=== PATIENT | male | born 1940 | race Caucasian/White ===

== ENCOUNTER 2023-03-14 11:22 | Emergency (ER) | payer MEDICARE ==
[~2023-03-14] VITALS: Ht 160 cm; Wt 65.0 kg
[2023-03-14 11:41] VITALS: BP 124/76; PULSE 72; RESP 18; TEMP 98.1; O2SAT 95
[2023-03-14 12:35] LABS: HEMATOCRIT. 35.6 % (42.0-52.0); HEMOGLOBIN. 12.1 g/dL (14.0-18.0); MEAN CORPUSCULAR HEMOGLOBIN 30.2 pg (28.0-32.0); MEAN CORPUSCULAR HGB CONC 34.1 g/dL (31.0-37.0); MEAN CORPUSCULAR VOLUME 88.7 fL (80.0-94.0); MEAN PLATELET VOLUME 8.9 fl (7.4-10.4); PLATELET 218 x1000/uL (130-400); RED BLOOD CELL COUNT 4.02 mill/uL (4.7-6.1); RED CELL DISTRIBUTION WIDTH 15.1 % (11.6-14.6); WHITE BLOOD COUNT 9.1 x1000/uL (4.5-11.0)
[2023-03-14 12:43] LABS: DIFFERENTIAL COMMENT 1
[2023-03-14 12:44] LABS: CHLORIDE 104 mEq/L (98-107); INDEX HEMOLYSI 1 (1-3); INDEX ICTERIC 1 (1-4); INDEX LIPEMIC 1 (1-3); POTASSIUM 3.2 mEq/L (3.5-5.1); SODIUM 137 mEq/L (136-145)
[2023-03-14 12:54] LABS: ALANINE AMINOTRANSFERASE 17 IU/L (13-61); ALBUMIN 3.4 g/dL (3.4-5.0); ASPARTATE AMINOTRANSFERASE 17 IU/L (15-37); BILIRUBIN TOTAL 1.3 mg/dL (0.1-1.0); CALCIUM 8.3 mg/dL (8.5-10.1); CARBON DIOXIDE 32 mEq/L (21-32); GLUCOSE 114 mg/dL (70-105); NT PRO B-TYPE NATRIURETIC PEP 137 pg/mL (5-125); PROTEIN TOTAL 7.2 g/dL (6.0-8.3); TROPONIN I HIGH SENSITIVITY 7 ng/L (<78); UREA NITROGEN BLOOD 16 mg/dL (7-21)
[2023-03-14 12:55] LABS: PROTHROMBIN TIME 10.8 sec (9.6-11.0)
[2023-03-14] MEDS ORDERED: MAGNESIUM OXIDE 400MG TABLET PO SCH (13:00)
[2023-03-14] MEDS ORDERED: ONDANSETRON 4MG ODT PO ONE (13:00)
[2023-03-14] MEDS ORDERED: POTASSIUM CHLORIDE 20MEQ TABLET SR PO ONE (13:00)
[2023-03-14 13:29] LABS: ANISOCYTOSIS 1+; PLATELET ESTIMATE NORMAL
[2023-03-14 13:45] LABS: CLARITY URINE CLEAR (CLEAR); COLOR URINE YELLOW (YELLOW); GLUCOSE URINE NEGATIVE (NEGATIVE); KETONES URINE NEGATIVE (NEGATIVE); LEUKOCYTE ESTERASE URINE NEGATIVE (NEGATIVE); NITRITE URINE NEGATIVE (NEGATIVE); OCCULT BLOOD URINE NEGATIVE (NEGATIVE); PROTEIN URINE TRACE (NEGATIVE); SPECIFIC GRAVITY URINE 1.017 (1.005-1.030)
[2023-03-14 13:48] LABS: BACTERIA URINE NONE SEEN; RBC URINE 0-2 /hpf (0-2); SQUAMOUS EPITHELIAL CELL URINE NONE SEEN /lpf (RARE/1+); WBC URINE NONE SEEN /hpf (0-2); YEAST URINE NONE SEEN
[2023-03-14 14:00] LABS: MUCUS URINE 2+ /lpf (NONE/TRACE)
== END 2023-03-14 15:51 | disposition left against medical advice (07) ==
LOC: ER 11:22
DX: R55 Syncope and collapse (principal); I10 Essential (primary) hypertension; E05.90 Thyrotoxicosis, unspecified without thyrotoxic crisis or storm
CPT/HCPCS: 99284; 70450; 76705; 71045; 80053; 81003; 83880; 83690; 85025; 85610; 84484; 36415; 93005; Q0162